=== PATIENT | female | born 1935 ===

== ENCOUNTER 2016-08-29 15:08 | Emergency (ER) | payer MEDICARE ==
[2016-08-29 15:19] VITALS: RESP 18
--- NOTE | 2016-08-29 16:02 | ED PDOC ---
HPI: Back Time Seen by Provider: 08/29/16 15:53 Chief Complaint (Nursing): Back Pain History Per: Patient (Sharp left lower back pain radiating to left hip and buttock x 2 weeks. No trauma. No weakness or parasthesias. No urinary sxs.) Onset/Duration Of Symptoms: Other (2 weeks) Current Symptoms Are (Timing): Still Present Quality Of Discomfort: Sharp Severity: Moderate Pain Scale Rating Of: 5 Previous Symptoms: Back Pain Associated Symptoms: None Exacerbating Factor(s): Movement Past Medical History Vital Signs: Last Vital Signs Temp 100.6 F H 08/29/16 15:15 Pulse 75 08/29/16 15:15 Resp 18 08/29/16 15:15 BP 142/80 08/29/16 15:15 Pulse Ox 97 08/29/16 15:15 - Medical History PMH: HTN - Family History Family History: States: Unknown Family Hx - Allergies Allergies/Adverse Reactions: Allergies Allergy/AdvReac Type Severity Reaction Status Date / Time No Known Allergies Allergy Verified 08/29/16 15:57 Review of Systems ROS Statement: Except As Marked, All Systems Reviewed And Found Negative Genitourinary Female: Negative for: Dysuria, Frequency Musculoskeletal: Positive for: Back Pain Neurological: Negative for: Weakness, Numbness Physical Exam - Physical Exam Appears: Positive for: Non-toxic, Uncomfortable Skin: Positive for: Normal Color, Warm, DRY Cardiovascular/Chest: Positive for: Regular Rate, Rhythm Respiratory: Positive for: CNT, Normal Breath Sounds Gastrointestinal/Abdominal: Positive for: Soft. Negative for: Tenderness Back: Positive for: Normal Inspection, Other (Left paralumbar tenderness). Negative for: L CVA Tenderness, R CVA Tenderness, Vertebral Tenderness Neurologic/Psych: Positive for: Alert, Oriented. Negative for: Motor/Sensory Deficits - ECG O2 Sat by Pulse Oximetry: 97 Disposition - Clinical Impression Clinical Impression: Back pain - Patient ED Disposition Is Patient to be Admitted: Transfer of Care - Disposition Disposition: Transfer of Care Disposition Time: 17:00 Condition: FAIR Patient Signed Over To: Monae Carson
--- NOTE | 2016-08-29 16:51 | RAD ---
PROCEDURE: Pelvis left hip dated 08/29/2016 AP view of the pelvis both hips and AP/frogleg lateral views of left hip performed HISTORY: pain COMPARISON: None. FINDINGS: BONES: No evidence of acute displaced fracture nor dislocation. Osseous structures intact. Small sclerotic density overlying the left inferior iliac bone which could represent a bone island or osteoma. JOINTS: Both femoral heads are appropriately located within the respective acetabula. 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 SOFT TISSUES: There are multiple small calcific densities overlying inferior pelvis some of which likely represent calcified pelvic phleboliths and others possibly calcified injection granulomata within the buttock. OTHER FINDINGS: Mild multilevel degenerative spondylosis of the lower lumbar and sacral spine IMPRESSION: No acute fractures. 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
--- NOTE | 2016-08-29 16:54 | RAD ---
PROCEDURE: Radiographs of the Lumbar Spine. HISTORY: trauma r/o fx COMPARISON: No prior study available for comparison FINDINGS: BONES: No acute compression fractures no retropulsed fragments. Vertebral bodies exhibit relatively normal stature. Vertebral bodies and facets normally aligned. DISC SPACES: Disc space heights relatively maintained. Mild multilevel facet arthropathy L5-S1 through the L2-L3 levels in somewhat decreasing order of severity OTHER FINDINGS: None. IMPRESSION: No fracture seen. Mild multilevel facet arthropathy
[2016-08-29 16:57] LABS: BASO % 0.3 % (0.0-2.0); EOS % 0.4 % (0.0-4.0); HEMATOCRIT 38.7 % (34.0-47.0); LYMPH # 1.2 K/uL (1.0-4.3); LYMPH % 12.7 % (20.0-40.0); MEAN CELL VOLUME 93.1 fl (81.0-99.0); MEAN CORPUSCULAR HEMOGLOBIN 31.7 pg (27.0-31.0); MEAN PLATELET VOLUME 8.2 fl (7.2-11.7); MONO # 0.8 K/uL (0.0-0.8); MONO % 8.2 % (0.0-10.0); NEUT # 7.4 K/uL (1.8-7.0); NEUT % 78.4 % (50.0-75.0); RED CELL DISTRIBUTION WIDTH 13.3 % (11.5-14.5); WHITE BLOOD COUNT 9.4 K/uL (4.8-10.8)
[2016-08-29 17:04] LABS: URINE BILIRUBIN NEGATIVE (NEGATIVE); URINE BLOOD NEGATIVE (NEGATIVE); URINE COLOR YELLOW (YELLOW); URINE GLUCOSE (UA) NEG (Normal); URINE KETONE NEGATIVE (NEGATIVE); URINE LEUKOCYTE ESTERASE NEG Leu/uL (Negative); URINE PROTEIN NEGATIVE (NEGATIVE); URINE UROBILINOGEN 0.2-1.0 mg/dL (0.2-1.0); WBC URINE 3 /hpf (0-5)
[2016-08-29 17:07] LABS: ALB/GLOB RATIO 1.3 (1.0-2.1); ALKALINE PHOSPHATASE 132 U/L (38-126); ALT/SGPT 34 U/L (9-52); AST/SGOT 26 U/L (14-36); BILIRUBIN,TOTAL 0.4 mg/dl (0.2-1.3); BLOOD UREA NITROGEN 17 mg/dl (7-17); CALCIUM 9.7 mg/dL (8.4-10.2); CARBON DIOXIDE 26 mmol/L (22-30); CHLORIDE 100 mmol/L (98-107); GFR AFRICAN-AMERICAN > 60; GLUCOSE,RANDOM 134 mg/dL (65-105); POTASSIUM 3.5 MMOL/L (3.6-5.0); SODIUM 138 mmol/l (132-148); TOTAL PROTEIN 7.9 G/DL (6.3-8.2)
--- NOTE | 2016-08-29 17:30 | ED PDOC ---
- Laboratory Results Result Diagrams: 08/29/16 16:20 08/29/16 16:20 - ECG O2 Sat by Pulse Oximetry: 97 (RA) Pulse Ox Interpretation: Normal Medical Decision Making Medical Decision Makin:00 Patient transferred over to provider from Dr. Marino. Pending labs and urinalysis. Scribe Attestation: Documented by Abdulkadir Cortes, acting as a scribe for Monae Carson MD. Provider Scribe Attestation: All medical record entries made by the Scribe were at my direction and personally dictated by me. I have reviewed the chart and agree that the record accurately reflects my personal performance of the history, physical exam, medical decision making, and the department course for this patient. I have also personally directed, reviewed, and agree with the discharge instructions and disposition. Disposition Doctor Will See Patient In The: Office Counseled Patient/Family Regarding: Studies Performed, Diagnosis - Clinical Impression Clinical Impression: Back pain - POA Present On Arrival: None - Disposition Referrals: [facility] [Outside] Disposition: Routine/Home Disposition Time: 18:07 Condition: GOOD Additional Instructions: Follow up with your PCP in 2-3 days. Return for worsening. Prescriptions: Naproxen 500 mg PO BID #20 tab Instructions: Back Pain (ED)
[2016-08-29 18:26] VITALS: BP 138/80; PULSE 87; TEMP 98.8; O2SAT 98
== END 2016-08-29 18:27 | disposition home or self-care (01) ==
LOC: H.ER 15:08
DX: M54.9 Dorsalgia, unspecified (principal); M25.552 Pain in left hip; I10 Essential (primary) hypertension
CPT/HCPCS: 72110; 73502; 80053; 81003; 85025; 87086; 96374; 99282; J1885